=== PATIENT | male | born 1980 | race Caucasian/White ===

== ENCOUNTER 2022-10-06 08:26 | Inpatient (IN) | payer OTHER ==
[2022-10-06 09:22] VITALS: BMI 23.4
[2022-10-06] MEDS ORDERED: ACETAMINOPHEN 325 MG TABLET (FP) PO PRN ×2 (09:46)
[2022-10-06] MEDS ORDERED: METHOCARBAMOL 500 MG TABLET PO PRN (09:46)
[2022-10-06] MEDS ORDERED: NALOXONE HCL (KLOXXADO) 8 MG SPRAY NS PRN (09:46)
[2022-10-06] MEDS ORDERED: POLYETHYLENE GLYCOL (HEALTHYLAX) 3350 17 GM PACKET PO PRN (09:46)
[2022-10-06] MEDS ORDERED: BISMUTH SUBSALICYLATE 262 MG/15 ML BTL PO PRN (09:46)
[2022-10-06] MEDS ORDERED: NICOTINE POLACRILEX 4 MG GUM BUC PRN (09:46)
[2022-10-06] MEDS ORDERED: chlordiazePOXIDE HCL 25 MG CAPSULE PO PRN (09:46)
[2022-10-06] MEDS ORDERED: IBUPROFEN 400 MG TABLET (FP) PO PRN (09:46)
[2022-10-06] MEDS ORDERED: MAGNESIUM HYDROX 2400MG/30ML ORAL SUSPENSION 30 ML CUP PO PRN (09:46)
[2022-10-06] MEDS ORDERED: NICOTINE 21 MG/24 HOURS TOPICAL PATCH TD PRN (09:46)
[2022-10-06] MEDS ORDERED: DICYCLOMINE HCL 10 MG CAPSULE PO PRN (09:46)
[2022-10-06] MEDS ORDERED: hydrOXYzine PAMOATE 25 MG CAPSULE (FP) PO PRN (09:46)
[2022-10-06] MEDS ORDERED: BENZOCAINE/MENTHOL (CHLORASEPTIC ) LOZENGE MM PRN (09:46)
[2022-10-06] MEDS ORDERED: MAG HYDROX/AL HYDROX/SIMETH 30 ML UNIT-DOSE CUP PO PRN (09:46)
[2022-10-06] MEDS ORDERED: ONDANSETRON *ODT* 4 MG TABLET SL PRN (09:46)
[2022-10-06] MEDS ORDERED: LOPERAMIDE HCL 2 MG CAPSULE PO PRN (09:46)
[2022-10-06] MEDS ORDERED: NICOTINE 10 MG CARTRIDGE (INHALER) IH PRN (09:46)
[2022-10-06] MEDS: IBUPROFEN 600 MG TABLET (FP) PO PRN ×2 (10:33→17:33)
[2022-10-06] MEDS: PRENATAL VITAMINS W/ FOLIC ACID TABLET (FP) PO SCH (10:38)
[2022-10-06] MEDS: chlordiazePOXIDE HCL 25 MG CAPSULE PO SCH ×2 (17:33→23:55)
[2022-10-06 19:03] LABS: HEMATOCRIT 40.1 % (35.4-49); HEMOGLOBIN 13.6 GM/dL (11.7-16.9); MCH 29.5 pg (25.7-33.7); MCHC 33.8 g/dl (32.0-35.9); MEAN CELL VOLUME 87.3 fl (80-96); MEAN PLT VOLUME 7.1 fl (7.5-11.1); PLATELET COUNT 290 10^3/uL (134-434); RBC 4.59 M/mm3 (4.00-5.60); WHITE BLOOD COUNT 9.5 K/mm3 (4.0-10.0)
[2022-10-06 19:13] LABS: CALCIUM 9.4 mg/dL (8.5-10.1)
[2022-10-06 19:14] LABS: ALBUMIN 4.3 g/dl (3.4-5.0)
[2022-10-06 19:16] LABS: CREATININE 0.9 mg/dL (0.55-1.3)
[2022-10-06 19:17] LABS: BILIRUBIN,TOTAL 0.6 mg/dL (0.2-1); TOT PROT 6.6 g/dl (6.4-8.2)
[2022-10-06 19:18] LABS: BLOOD UREA NITROGEN 21.8 mg/dL (7-18)
[2022-10-06] MEDS ORDERED: THIAMINE HCL 100 MG TABLET (FP) PO SCH (22:00)
[2022-10-06] MEDS ORDERED: MELATONIN 5 MG TABLETS PO SCH (22:00)
[2022-10-07] MEDS: chlordiazePOXIDE HCL 25 MG CAPSULE PO SCH ×2 (05:45→11:09)
[2022-10-07 09:33] VITALS: BP 140/73; PULSE 75; RESP 18; TEMP 98.6
[2022-10-07] MEDS: PRENATAL VITAMINS W/ FOLIC ACID TABLET (FP) PO SCH (11:08)
[2022-10-08] MEDS ORDERED: chlordiazePOXIDE HCL 10 MG CAPSULE PO PRN
[2022-10-08] MEDS ORDERED: chlordiazePOXIDE HCL 10 MG CAPSULE PO SCH (05:00)
[2022-10-09] MEDS ORDERED: chlordiazePOXIDE HCL 10 MG CAPSULE PO SCH (05:00)
[2022-10-10] MEDS ORDERED: chlordiazePOXIDE HCL 10 MG CAPSULE PO ONE (05:00)
== END 2022-10-07 11:06 | disposition home or self-care (01) | DRG 774 ==
LOC: YASAS 08:26 → Y6N 10:10
PROVIDERS: ADMIT Allergy & Immunology; ATTEND Surgery
PROC: HZ2ZZZZ Detoxification Services for Substance Abuse Treatment (ICD-10-PCS; principal; 2022-10-06)
DX: F10.230 Alcohol dependence with withdrawal, uncomplicated (principal); F14.20 Cocaine dependence, uncomplicated; F17.210 Nicotine dependence, cigarettes, uncomplicated; R79.89 Other specified abnormal findings of blood chemistry; Z28.310 Unvaccinated for COVID-19; Z28.9 Immunization not carried out for unspecified reason
CPT/HCPCS: 36415; 80053; 82140; 85027; 86780; 87811; 93005; 93010; C9803-CS; U0003; U0005

== ENCOUNTER 2023-03-03 06:57 | Emergency (ER) | payer OTHER ==
[2023-03-03 07:14] VITALS: BMI 25.0
[2023-03-03] MEDS ORDERED: ceFAZolin SODIUM 1 GM VIAL IM ONE (07:43)
[2023-03-03] MEDS ORDERED: ceFAZolin SODIUM 1 GM VIAL ONE (07:55)
[2023-03-03] MEDS ORDERED: BACITRACIN 0.9 GM PACKET ONE (08:54)
[2023-03-03 09:59] VITALS: BP 121/68; PULSE 72; RESP 20; TEMP 98.1
== END 2023-03-03 11:00 | disposition home or self-care (01) ==
LOC: JER 06:57
DX: S91.312A Laceration without foreign body, left foot, initial encounter (principal); F10.20 Alcohol dependence, uncomplicated; W15.XXXA Fall from cliff, initial encounter
CPT/HCPCS: 73630-TC-LT; 99284-25